=== PATIENT | female | born 1965 | race Hispanic/Latino ===

== ENCOUNTER → 2019-01-28 | Day surgery (SDC) | payer OTHER ==
[~2019-01-28] MED LIST: FENTANYL CITRATE/PF 100MCG/2 ML INJ ONE; LIDOCAINE HCL 2% LOCAL INJ 5 ML SDV VIAL INJ ONE; LOSARTAN POTAS100 MG PO; MIDAZOLAM HCL 2 MG/2 ML VIAL ONE; PROPOFOL IV EMULSION 10 MG/ML 50 ML VIAL ONE
--- OUTSIDE RECORDS SUMMARY | 2019-01-28 05:53 | XMS REPORT ---
Author Author [facility] Address Unknown Phone Unavailable Care Team Providers Care Reinforcing Rod Layer Name Role Phone Unavailable Unavailable Payers Payer Name Policy Type Policy Number Effective Date Expiration Date Problems This patient has no known problems. Allergies, Adverse Reactions, Alerts Allergy Name Allergy Type Status Severity Reaction(s) Onset Date Inactive Date Treating Clinician Comments No Known Allergies DA Active U 2011-09-17 00:00:00 Medications This patient has no known medications. Results Test Description Test Time Test Comments Text Results Atomic Results Result Comments URINALYSIS COMPLETE 2019-01-18 07:09:00 UA COLOR (test code=COLU) CHEY YELLOW UA APPEARANCE (test code=APPU) Cloudy CLEAR UA GLUCOSE DIPSTICK (test code=DGLUU) NEGATIVE mg/dL NEGATIVE UA BILIRUBIN DIPSTICK (test code=BILU) NEGATIVE mg/dL NEGATIVE UA KETONE DIPSTICK (test code=KETU) Negative mg/dL NEGATIVE UA SPECIFIC GRAVITY (test code=SGU) 1.018 1.001-1.035 UA BLOOD DIPSTICK (test code=JUNIOR) Negative NEGATIVE UA PH DIPSTICK (test code=USAMA) 6.0 5.0-8.0 UA PROTEIN DIPSTICK (test code=PROU) 100 (2+) mg/dL NEGATIVE UA UROBILINIOGEN DIPSTICK (test code=URO) NEGATIVE mg/dL NEGATIVE UA NITRITE DIPSTICK (test code=YOANDY) NEGATIVE NEGATIVE UA LEUKOCYTE ESTERASE W REFLEX (test code=LEUUR) NEGATIVE NEGATIVE UA WBC (test code=WBCU) 0-5 #/HPF 0-5 UA RBC (test code=RBCU) 0-2 #/HPF 0-5 UA EPITHELIAL CELLS (test code=EPIU) FEW per HPF FEW UA BACTERIA (test code=BACU) FEW #/HPF NONE UA MUCUS (test code=MUCU) FEW #/LPF FEW Urine Source? Clean CatchURINALYSIS [id number] 07:06:00* Test Item Value Reference Range Comments UA COLOR (test code=COLU) CHEY YELLOW UA APPEARANCE (test code=APPU) Cloudy CLEAR UA GLUCOSE DIPSTICK (test code=DGLUU) NEGATIVE mg/dL NEGATIVE UA BILIRUBIN DIPSTICK (test code=BILU) NEGATIVE mg/dL NEGATIVE UA KETONE DIPSTICK (test code=KETU) Negative mg/dL NEGATIVE UA SPECIFIC GRAVITY (test code=SGU) 1.018 1.001-1.035 UA BLOOD DIPSTICK (test code=JUNIOR) Negative NEGATIVE UA PH DIPSTICK (test code=USAMA) 6.0 5.0-8.0 UA PROTEIN DIPSTICK (test code=PROU) 100 (2+) mg/dL NEGATIVE UA UROBILINIOGEN DIPSTICK (test code=URO) NEGATIVE mg/dL NEGATIVE UA NITRITE DIPSTICK (test code=YOANDY) NEGATIVE NEGATIVE UA LEUKOCYTE ESTERASE W REFLEX (test code=LEUUR) NEGATIVE NEGATIVE UA WBC (test code=WBCU) per HPF 0-5 Urine Source? Clean CatchBASIC METABOLIC [id number] 06:59:00* Test Item Value Reference Range Comments SODIUM (test code=NA) 143 mmol/L 136-145 POTASSIUM (test code=K) 3.7 mmol/L 3.5-5.1 CHLORIDE (test code=CL) 111.0 mmol/L 98-107 CARBON DIOXIDE (test code=CO2) 26.0 mmol/L 21-32 ANION GAP (test code=GAP) 9.7 10-20 GLUCOSE (test code=GLU) 124 mg/dL 74-106 BLOOD UREA NITROGEN (test code=BUN) 16 mg/dL 7-18 GLOMERULAR FILTRATION RATE (test code=GFR) 52 mL/min >=60 Estimated GFR by using Modified MDRD formula.Chronic kidney disease is defined as either kidney damageor GFR <60 mL/min/1.73 m2 for >3 months. CREATININE (test code=CREAT) 1.10 mg/dL 0.55-1.02 Note change in reference range due to change in reagent. BUN/CREATININE RATIO (test code=BUN/CREA) 14.5 10-20 CALCIUM (test code=CA) 9.4 mg/dL 8.5-10.1 [id number] 06:59:00* Test Item Value Reference Range Comments TROPONIN-I (test code=TROPI) <0.015 ng/mL 0-0.045 BASIC METABOLIC [id number] 06:49:00* Test Item Value Reference Range Comments SODIUM (test code=NA) 143 mmol/L 136-145 POTASSIUM (test code=K) 3.7 mmol/L 3.5-5.1 CHLORIDE (test code=CL) 111.0 mmol/L 98-107 CARBON DIOXIDE (test code=CO2) mmol/L 21-32 ANION GAP (test code=GAP) 10-20 GLUCOSE (test code=GLU) mg/dL 74-106 BLOOD UREA NITROGEN (test code=BUN) mg/dL 7-18 GLOMERULAR FILTRATION RATE (test code=GFR) mL/min >=60 CREATININE (test code=CREAT) mg/dL 0.55-1.02 BUN/CREATININE RATIO (test code=BUN/CREA) 10-20 CALCIUM (test code=CA) 9.4 mg/dL 8.5-10.1 [id number] 06:49:00* Test Item Value Reference Range Comments TROPONIN-I (test code=TROPI) ng/mL 0-0.045 PROTHROMBIN [id number] 06:48:00* Test Item Value Reference Range Comments PROTHROMBIN TIME PATIENT (test code=PTP) 12.1 seconds 9.0-14.0 INTERNATIONAL NORMAL RATIO (test code=INR) 1.0 0.8-1.2 The therapeutic range for oral anticoagulant therapy formost indications is an international normalized ratio (INR)of between 2.0 and 3.0. The recommended therapeutic INRrange for various clinical situations is listed below: Clinical Situation INR range Pulmonary e mbolism treatment (2.0-3.0)Venous thrombosis treatmentVenous thrombosis prophylaxis (high risk surgery)Prevention of systemic embolism from: Acute myocardial infarction Valvular heart disease Atrial fibrillation Mechanical prosthetic heart valves (2.5-3.5) IS PATIENT ON ANTICOAGULANTS? NTHROMBOPLASTIN TIME [id number] 06:48:00* Test Item Value Reference Range Comments THROMBOPLASTIN TIME PARTIAL (test code=PTT) 32.6 seconds 25.0-36.5 IS PATIENT ON ANTICOAGULANTS? NCBC W/AUTO [id number] 06:36:00* Test Item Value Reference Range Comments WHITE BLOOD CELL (test code=WBC) 21.6 K/mm3 4.5-12.5 RED BLOOD CELL (test code=RBC) 5.10 mill/mm3 3.7-5.2 HEMOGLOBIN (test code=HGB) 13.3 gram/dL 11.5-15.5 HEMATOCRIT (test code=HCT) 45.2 % 36.0-46.0 MEAN CELL VOLUME (test code=MCV) 88.6 fL 80-98 MEAN CELL HGB (test code=MCH) 26.1 picogram 27.0-33.0 MEAN CELL HGB CONCETRATION (test code=MCHC) 29.4 gram/dL 33.0-36.0 RED CELL DISTRIBUTION WIDTH (test code=RDW) 14.2 % 11.6-16.2 RED CELL DISTRIBUTION WIDTH SD (test code=RDW-SD) 45.4 fL 37.0-51.0 PLATELET COUNT (test code=PLT) 342 K/mm3 150-450 MEAN PLATELET VOLUME (test code=MPV) 10.9 fL 6.7-11.0 NEUTROPHIL % (test code=NT%) 86.9 % 39.0-69.0 IMMATURE GRANULOCYTE % (test code=IG%) 0.6 % 0.0-5.0 LYMPHOCYTE % (test code=LY%) 9.3 % 25.0-55.0 MONOCYTE % (test code=MO%) 2.8 % 0.0-10.0 EOSINOPHIL % (test code=EO%) 0.2 % 0.0-5.0 BASOPHIL % (test code=BA%) 0.2 % 0.0-1.0 NUCLEATED RBC % (test code=NRBC%) 0.0 % 0-0 NEUTROPHIL # (test code=NT#) 18.70 K/mm3 1.8-7.7 IMMATURE GRANULOCYTE # (test code=IG#) 0.14 x10 3/uL 0-0.03 LYMPHOCYTE # (test code=LY#) 2.01 K/mm3 1.0-5.0 MONOCYTE # (test code=MO#) 0.60 K/mm3 0-0.8 EOSINOPHIL # (test code=EO#) 0.05 K/mm3 0.0-0.5 BASOPHIL # (test code=BA#) 0.05 K/mm3 0.0-0.2 NUCLEATED RBC # (test code=NRBC#) 0.00 K/mm3 0.0-0.1 MANUAL DIFF REQUIRED (test code=MDIFF) NO - CT C-SPINE W/O [id number] 06:30:00 Name: ROYAL CRANE [facility] : 1965 Age/S: 53 / F [address] [facility] Unit #: [id number] Loc: [place] [address] Phys: Macy Abarca NP Acct: [id number] Dis Date: Status: PRE ER PHONE #: [phone] Exam Date: 01/18/2019 0617 FAX #: [phone] Reason: FELL, HIT HEAD, AMS EXAMS: CPT CODE: [id number] CT C-SPINE W/O CONTRAST [id number] AFTER HOURS SERVICE ON: 01/18/2019 6:[address] Scan of the Brain Without Contrast Location Code M12 History: FELL, HIT HEAD, AMS Technique: Scans were performed on a helical scanner pre IV contrast only. The study is limited secondary to lack of intravenous contrast, particularly for evaluation of masses. One or more of the following dose reduction techniques were used: Automated exposure control, adjustment of the mA and/or kV according to patient size, and/or utilization of iterative reconstruction technique. Findings: There is no hydrocephalus. Basal cisterns are patent. There is no intracranial hyperdense hemorrhage. There is no midline shift or mass effect. No effacement of the butler-white matter junction to indicate acute infarction. There is no skull fracture. Impression: No skull fracture or intracranial hemorrhage. AFTER HOURS SERVICE ON: 01/18/2019 6:[address] of the Cervical Spine Without Contrast Location Code M12 His tory: FELL, HIT HEAD, AMS Technique: Scans were obtained on a helical scanner pre IV contrast only. PAGE 1 Signed Report (CONTINUED) Name: ROYAL CRANE [facility] : 1965 Age/S: 53 / F [address] Unit #: [id number] Loc: [place] [address] Phys: Macy Abarca NP Acct: [id number] Dis Date: Status: PRE ER PHONE #: [phone] Exam Date: 2018 FAX #: [phone] Reason: FELL, HIT HEAD, AMS EXAMS: CPT CODE: [id number] CT C-SPINE W/O CONTRAST 721 25 <Continued> One or more of the following dose reduction techniques were used: Automated exposure control, adjustment of the mA and/or kV according to patient size, and/or utilization of iterative reconstruction technique. Findings: Craniocervical junction is intact. Atlantoaxial joint is unremarkable. C1 ring is normal. Dens is intact. Transverse processes, pedicles and lamina are intact. No compression fracture or pathologic lesions. Impression: No cervical spine fracture. at 0630 Reported and signed by: Evangelina Villatoro M.D. CC: Macy Abarca NP Technologist:DELONTE PHILLIPS RT; Jewell Urbina CTDI: DLP: Trnscb Date/Time: 01/18/2019 (0630) [email or web address] PAGE 2 Signed Report - CT HEAD/BRAIN W/O [id number] 06:30:00 Name: ROYAL CRANE [facility] : 1965 Age/S: 53 / F [address] Unit #: [id number] Loc: [place] [address] Phys: Macy Abarca [employer] Acct: [id number] Dis Date: Status: PRE ER PHONE #: [phone] Exam Date: 01/18/2019616 FAX #: [phone] Reason: FELL, HIT HEAD, AMS EXAMS: CPT CODE: [id number] CT HEAD/BRAIN W/O CONT [id number] AFTER HOURS SERVICE ON: 01/18/2019 6:[address] Scan of the Brain Without Contrast Location Code M12 History: FELL, HIT HEAD, AMS Technique: Scans were performed on a helical scanner pre IV contrast only. The study is limited secondary to lack of intravenous contrast, particularly for evaluation of masses. One or more of the following dose reduction techniques were used: Automated exposure control, adjustment of the mA and/or kV according to patient size, and/or utilization of iterative reconstruction technique. Findings: There is no hydrocephalus. Basal cisterns are patent. There is no intracranial hyperdense hemorrhage. There is no midline shift or mass effect. No effacement of the butler-white matter junction to indicate acute infarction. There is no skull fracture. Impression: No skull fracture or intracranial hemorrhage. AFTER HOURS SERVICE ON: 01/18/2019 6:[address] of the Cervical Spine Without Contrast Location Code M12 His tory: FELL, HIT HEAD, AMS Technique: Scans were obtained on a helical scanner pre IV contrast only. PAGE 1 Signed Report (CONTINUED) Name: ROYAL CRANE [facility] : 1965 Age/S: 53 / F [address] Unit #: [id number] Loc: [place] [address] Phys: Macy Abarca [employer] Acct: [id number] Dis Date: Status: PRE ER PHONE #: [phone] Exam Date: 2018 FAX #: [phone] Reason: FELL, HIT HEAD, AMS EXAMS: CPT CODE: [id number] CT HEAD/BRAIN W/O CONT 704 50 <Continued> One or more of the following dose reduction techniques were used: Automated exposure control, adjustment of the mA and/or kV according to patient size, and/or utilization of iterative reconstruction technique. Findings: Craniocervical junction is intact. Atlantoaxial joint is unremarkable. C1 ring is normal. Dens is intact. Transverse processes, pedicles and lamina are intact. No compression fracture or pathologic lesions. Impression: No cervical spine fracture. at 0630 Reported and signed by: Evangelina Villatoro M.D. CC: Macy Abarca NP Technologist:DELONTE PHILLIPS RT; Jewell Urbina CTDI: DLP: Trnscb Date/Time: 01/18/2019 (0630) [email or web address] Orig Print D/T: S: 01/18/2019 (0633) CTDI: DLP: PAGE 2 Signed Report [id number] 06:14:00* Test Item Value Reference Range Comments GLUBED (test code=GLUBED) 125 mg/dL 74-106 Performed by certified wood turning lathe operator at [facility]
--- NOTE | 2019-01-28 07:06 | NUR ---
SPIRITUAL CARE - Pre-Surgery Assessment: Pt in bed. Pt's son & daughter at bedside. Pt identified as Sikhism. Pt reported supportive attention from family and friends. Intervention: I provided pastoral presence, hospitality, sympathetic listening, and prayer. I acquainted pt with availability of combination man while hospitalized. Outcome: Pt expressed appreciation for visit. No need for follow up indicated at this time. AN DURANT [employer] Spiritual Care Department O: [phone] Pager: [phone] ([phone] number calling from)
[2019-01-28 09:45] VITALS: BP 136/78
--- NOTE | 2019-01-28 15:51 | Operative Report ---
DATE OF PROCEDURE: 01/28/2019 SURGEON: Saurabh Lopez MD PROCEDURE: EGD with biopsies and colonoscopy with biopsies. INDICATIONS FOR EGD: Heartburn, indigestion, dark stools. INDICATIONS FOR COLONOSCOPY: History of bright red blood per rectum, personal history of colon polyps. MEDICATIONS: The patient was done under MAC. Please see anesthesiologist's note. PROCEDURE IN DETAIL: With the patient in left lateral decubitus position, flexible fiberoptic Olympus gastroscope was introduced into the esophagus under direct visualization without any difficulty. Two minute submucosal nodules were noted at approximately 25 cm from the incisors and those were removed with the cold biopsy forceps. There was some patchy erythema noted in distal esophagus. The scope was then advanced with ease into the stomach traversing a small sliding hiatal hernia. Mucosa overlying the antrum and the body revealed some diffuse erythema and low-grade to moderate edema. Biopsies were obtained and sent to stain for H. pylori. The pylorus was of normal contour and shape, was intubated with ease, and the scope was advanced all the way to the second portion of the duodenum. Biopsies were obtained from the proximal second portion and duodenal bulb to rule out sprue. The scope was then withdrawn back into the stomach and retroflexed, and mucosa overlying the fundus and cardia appeared to be within normal limits. The scope was then straightened out. It was subsequently withdrawn. The patient tolerated the procedure well. IMPRESSION: 1. Minute submucosal nodules, esophagus, approximately 25 cm from the incisors, biopsies obtained. 2. Distal esophagitis, mild. 3. Small sliding hiatal hernia. 4. Gastritis, biopsied, biopsies sent to stain for H. pylori. 5. Rule out sprue. PLAN: Follow up histology. Initiate Protonix 40 mg one p.o. q.a.m. a.c. The patient was then turned around, and after adequate lubrication of the anal canal, a flexible fiberoptic Olympus colonoscope was inserted into the rectum with ease and advanced all the way to the cecum. Mucosa overlying the cecum appeared to be within normal limits. The scope was then advanced into the terminal ileum. Biopsies were obtained. The scope was then withdrawn back into the colon. It was then withdrawn slowly. Mucosa overlying the ascending and the transverse grossly appeared to be within normal limits. Mild patchy inflammatory changes were noted in the left colon. Multiple random biopsies were obtained. Some diverticular disease was noted in the sigmoid colon. The scope was then retroflexed into the distal rectum and small internal hemorrhoids were noted, none of which was actively bleeding. The scope was then straightened out, it was subsequently withdrawn. The patient tolerated procedure well. IMPRESSION: 1. Mild patchy left-sided colitis. 2. Diverticulosis. 3. Internal hemorrhoids, none actively bleeding. PLAN: Followup histology. Initiate high-fiber, low-fat diet. Initiate high-fiber supplements. Start VSL #3 one p.o. q.i.d. and Bentyl 10 mg one p.o. t.i.d. The patient might benefit from a followup colonoscopy in 5 to 10 years. Saurabh Lopez MD [facility] /[id number] cc: [facility]
== END | disposition home or self-care (01) ==
LOC: OR 05:50
PROVIDERS: ATTEND Internal Medicine Gastroenterology
DX: K51.50 Left sided colitis without complications (principal); K29.50 Unspecified chronic gastritis without bleeding; B96.81 Helicobacter pylori [H. pylori] as the cause of diseases classified elsewhere; K20.9 Esophagitis, unspecified; K22.8 Other specified diseases of esophagus; K44.9 Diaphragmatic hernia without obstruction or gangrene; K57.30 Diverticulosis of large intestine without perforation or abscess without bleeding; K64.8 Other hemorrhoids; D50.0 Iron deficiency anemia secondary to blood loss (chronic); E11.9 Type 2 diabetes mellitus without complications; I10 Essential (primary) hypertension; Z01.810 Encounter for preprocedural cardiovascular examination; Z86.73 Personal history of transient ischemic attack (TIA), and cerebral infarction without residual deficits
CPT/HCPCS: 43239; 45380; 93005; J2001; J2250; J2704; 45378